=== PATIENT | female | born 1985 | race Caucasian/White ===

== ENCOUNTER 2016-12-21 16:21 | Outpatient (CLI) | payer MEDICAID ==
[~2016-12-21] VITALS: Ht 167.6 cm; Wt 88.4 kg
[~2016-12-21 16:21] MED LIST: PREN1TAB17 PO
[2016-12-21 17:02] VITALS: Ht 167.6 cm; Wt 88.4 kg
[2016-12-21 17:03] VITALS: BP 110/62; PULSE 85; RESP 20
--- NOTE | 2016-12-21 17:48 | TRIAGE ---
OB Triage Datetime Report Generated by CPN: 12/21/2016 17:47 Datetime: 12/21/2016 16:52 Time of Arrival: 12/21/2016 16:10 EGA: 33.6 Arrived By: Ambulatory Arrived From: Home Chief Complaint: DECREASED MOVEMENT Movement: Present Contractions: Denies/Absent Rupture of Membranes: Denies Vaginal Bleeding: None Vaginal Discharge: Denies Recent Sexual Intercouse: Denies Abdominal Trauma: Not Applicable Patient Complaints: Other Time Provider Notified: 12/21/2016 17:10 Provider Notified: CECILE Initial Plan: EFM,CALL DR HUBER Datetime: 12/21/2016 16:49 Maternal Assessment Level of Consciousness: Fully Conscious DTR's/Clonus: DTRs 2+; No Clonus Headache: Denies Blurred Vision: No Respiratory Effort: Unlabored; Regular Rhythm; Equal Expansion Breath Sounds, Left: Clear and Equal Breath Sounds, Right: Clear and Equal Nausea/Vomiting: Denies RUQ Epigastric Pain: Denies Facial Edema: None Temperature Route: Axillary Fall Risk Assessment History of Falling: (0) No Secondary Diagnosis: (0) No Ambulatory Aid: (0) Bedrest/Nurse Assist IV Therapy: (0) No Gait: (0) Normal/Bedrest/Immobile Mental Status: (0) Oriented to Own Ability Fall Score: 0 Fall Risk Score Definition: No Risk: No action required Datetime: 12/21/2016 16:43 Maternal Assessment Level of Consciousness: Fully Conscious DTR's/Clonus: DTRs 2+ Headache: Denies Blurred Vision: No Nausea/Vomiting: Denies RUQ Epigastric Pain: Denies Facial Edema: None Heart Rate FHR Baseline Rate: 145 Monitor Mode: External US FHR Baseline Changes: No Baseline Change Variability: Moderate 6-25 bpm Accelerations: 15X15 Decelerations: None Category: Category I Pain Assessment Pain Scale: 5 Pain Presence: Intermittent Pain Type: Cramping Pain Location: Abdomen Pain Goal: 5 Vaginal Exam Membrane Status: Intact
--- NOTE | 2016-12-21 17:54 | RADRPT ---
PROCEDURE: US OB biophysical profile. Ultrasound cervix CLINICAL INDICATION: decreased movements, labor TECHNIQUE: Multiple sonographic images of the pelvis were obtained. The images were reviewed on a PACS workstation. In addition, transvaginal images of the cervix were obtained. COMPARISON: No prior studies are available for comparison. FINDINGS: The cervix is closed and measures 4.2 cm in length. There is a single viable intrauterine gestation. Cardiac activity is present with 146 beats per min michael. There is a breech presentation. The placenta is posterior. There is no evidence of placental abruption. There is a normal amount of amniotic fluid with an YASIR = 12.8 cm. Biophysical profile: movement 2/2 tone 2/2. breathing 2/2 YASIR 2/2 Total 04/29 RPTAT: AA . IMPRESSION: Normal biophysical profile. Cervix is closed and measures 4.2 cm in length. . .Garret Chow MD, MD Date Time Electronically viewed and signed by .Garret Chow MD, on 12/21/2016 17:53 .S/
[2016-12-21] MEDS ORDERED: LACTATED RINGER'S 1,000 ML IV SCH (18:30)
--- NOTE | 2016-12-21 21:45 | PN ---
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
--- NOTE | 2016-12-21 23:53 | TRIAGE ---
OB Triage Datetime Report Generated by CPN: 12/21/2016 23:53 Datetime: 12/21/2016 22:22 Stage of : OB Triage Frequency: 0 Monitor Mode: External Resting Tone [place]: Relaxed FHR Baseline Rate: 120 Monitor Mode: External US Variability: Moderate 6-25 bpm Accelerations: 15X15 Decelerations: None Category: Category I Datetime: 12/21/2016 22:19 Stage of : OB Triage Datetime: 12/21/2016 21:48 Stage of : OB Triage Datetime: 12/21/2016 21:36 Monitor Mode: External US Datetime: 12/21/2016 21:23 Stage of : OB Triage Datetime: 12/21/2016 21:04 Stage of : OB Triage Datetime: 12/21/2016 21:02 Stage of : OB Triage Datetime: 12/21/2016 20:53 Stage of : OB Triage Datetime: 12/21/2016 20:40 Stage of : OB Triage Frequency: X5 Monitor Mode: External Duration (sec)2399: 40-50 Quality: Mild Resting Tone [place]: Relaxed FHR Baseline Rate: 120 Monitor Mode: External US Variability: Moderate 6-25 bpm Accelerations: 15X15 Decelerations: Variable Category: Category I Datetime: 12/21/2016 19:40 Stage of : OB Triage Frequency: 3-6 Monitor Mode: External Duration (sec)2399: 40-100 Quality: Mild Resting Tone [place]: Relaxed FHR Baseline Rate: 130 Monitor Mode: External US Variability: Moderate 6-25 bpm Accelerations: 15X15 Decelerations: None Category: Category I Datetime: 12/21/2016 18:40 Level of Consciousness: Fully Conscious DTR's/Clonus: DTRs 2+ Headache: Denies Blurred Vision: No Nausea/Vomiting: Denies RUQ Epigastric Pain: Denies Facial Edema: None Frequency: IRREG Monitor Mode: External Duration (sec)2399: 40-50 Quality: Mild Pattern: Normal: <= 5 Contractions in 10 Minutes Resting Tone [place]: Relaxed FHR Baseline Rate: 140 Monitor Mode: External US FHR Baseline Changes: No Baseline Change Variability: Moderate 6-25 bpm Accelerations: 15X15 Decelerations: None Category: Category I Pain Scale: 0 Pain Presence: Intermittent Pain Type: Cramping Pain Location: Abdomen Pain Goal: 4 Membrane Status: Intact Datetime: 12/21/2016 17:59 Bedside Blood Glucose: 71
== END 2016-12-21 22:30 | disposition home or self-care (01) ==
LOC: OBT 16:21 → L-D 16:24 → OBT 22:30
PROVIDERS: ATTEND Obstetrics & Gynecology
DX: O36.8130 Decreased fetal movements, third trimester, not applicable or unspecified (principal); Z3A.33 33 weeks gestation of pregnancy
CPT/HCPCS: 36415; 76817; 76818; 82962; 96360; 96361; J7120; Z7500; G0463

== ENCOUNTER 2016-12-28 18:04 | Outpatient (CLI) | payer MEDICAID ==
[~2016-12-28] VITALS: Ht 167.6 cm; Wt 88.8 kg
[2016-12-28 18:16] VITALS: Ht 167.6 cm; Wt 88.8 kg
[2016-12-28 18:17] VITALS: BP 107/59
[2016-12-28] MEDS ORDERED: INSU100V3 IJ (18:21)
[2016-12-28] MEDS ORDERED: HUM100VI13 SQ (18:22)
--- NOTE | 2016-12-28 20:03 | PN ---
Date/Time of Note Date/Time of Note DATE: 12/28/16 TIME: 19:57 OB Subjective Subjective Subjective 31 yo P1 @ 34.6wks, c/o LOF, possible ROM Good FM, no VB, no ctx OB Objective Objective Objective 107/59, 85, 16, 97.5 Abdomen- gravid, n/t SSE- neg pooling, neg nitrazine FHT- Cat I [place]- no ctx Abdomen: WNL Accelerations: Accelerations Present Decelerations: No Decelerations Contractions on Admission: None OB Assessment/Plan Other Assessment: 31 yo P1 @ 34.6 wks, r/o PROM Other plan: will send ROM+, sono if not ruptured, d/c home GALILEO DIGGS MD Dec 28, 2016 20:03
[2016-12-28 20:05] LABS: ADD UMIC YES; URINE BILIRUBIN (Dip) NEGATIVE (NEGATIVE); URINE BLOOD (Dip) 1+ (NEGATIVE); URINE COLOR LT. YELLOW (YELLOW); URINE GLUCOSE (Dip) NEGATIVE (NEGATIVE); URINE KETONES (Dip) NEGATIVE (NEGATIVE); URINE LEUKOCYTE ESTERASE (Dip) 3+ (NEGATIVE); URINE NITRITE (Dip) NEGATIVE (NEGATIVE); URINE TOTAL PROTEIN (Dip) NEGATIVE (NEGATIVE); URINE UROBILINOGEN (Dip) 0.2 E.U./dL (0.1-1.0)
[2016-12-28 20:27] LABS: BACTERIA,URINE MANY; SQUAMOUS EPITHELIAL CELL,UR FEW; URINE RBCS 0-2 /HPF (0)
--- NOTE | 2016-12-28 20:27 | RADRPT ---
PROCEDURE: OB ultrasound for biophysical profile CLINICAL INDICATION: Biophysical profile. . TECHNIQUE: Multiple sonographic images of the pelvis were obtained. Transabdominal view of the gr avid uterus are available for review. The images were reviewed on a PACS workstation. COMPARISON: 12/26/2016 FINDINGS: Single intrauterine gestation. Presentation: Cephalic. Partially visualized placenta: Fundal breathing movement = 2/2 tone = 2/2 motion = 2/2 YASIR = 2/2 YASIR = 17.5 cm heart rate: 163 beats per minute IMPRESSION: Single intrauterine gestation. Biophysical profile 04/29 RPTAT: AADD .Sean Wilson MD, MD Date Time Electronically viewed and signed by .Sean Wilson MD, on 12/28/2016 20:27 .B/
--- NOTE | 2016-12-29 00:03 | TRIAGE ---
OB Triage Datetime Report Generated by CPN: 12/29/2016 00:03 Datetime: 12/28/2016 21:25 Stage of : OB Triage Frequency: X1 Monitor Mode: External Duration (sec)2399: 60 Quality: Mild Resting Tone [place]: Relaxed FHR Baseline Rate: 130 Monitor Mode: External US Variability: Moderate 6-25 bpm Accelerations: 15X15 Decelerations: None Category: Category I Pain Presence: None/Denies Pain Type: N/A Datetime: 12/28/2016 20:50 Stage of : OB Triage Frequency: 0 Monitor Mode: External Resting Tone [place]: Relaxed FHR Baseline Rate: 135 Monitor Mode: External US Variability: Moderate 6-25 bpm Accelerations: 15X15 Datetime: 12/28/2016 20:08 Stage of : OB Triage Datetime: 12/28/2016 19:56 Stage of : OB Triage Datetime: 12/28/2016 19:36 Monitor Mode: External US Datetime: 12/28/2016 18:42 Stage of : OB Triage Datetime: 12/28/2016 18:24 Stage of : OB Triage Assessment Type: Triage Level of Consciousness: Fully Conscious DTR's/Clonus: DTRs 2+; No Clonus Headache: Denies Blurred Vision: No Respiratory Effort: Unlabored; Regular Rhythm; Equal Expansion Breath Sounds, Left: Clear and Equal Breath Sounds, Right: Clear and Equal Nausea/Vomiting: Denies RUQ Epigastric Pain: Denies Lower Extremities Edema: None Degree: None Upper Extremities Edema: None Degree: None Facial Edema: None Temperature Route: Oral History of Falling: (0) No Secondary Diagnosis: (0) No Ambulatory Aid: (0) Bedrest/Nurse Assist IV Therapy: (0) No Gait: (0) Normal/Bedrest/Immobile Mental Status: (0) Oriented to Own Ability Fall Score: 0 Fall Risk Score Definition: No Risk: No action required Frequency: 0 Monitor Mode: External FHR Baseline Rate: 145 Monitor Mode: External US Variability: Moderate 6-25 bpm Accelerations: 15X15 Category: Category I Pain Scale: 0 Pain Presence: None/Denies Pain Type: N/A Datetime: 12/28/2016 18:00 Time of Arrival: 12/28/2016 18:00 EGA: 34.6 Arrived By: Ambulatory Arrived From: Home Chief Complaint: ? SROM Movement: Present Rupture of Membranes: Unsure Vaginal Bleeding: None Vaginal Discharge: Denies Recent Sexual Intercouse: Denies Abdominal Trauma: Not Applicable Patient Complaints: Other Additional Patient Complaints: PATIENT SAYS SHE FELT WARM GUSH OF WATER AFTER GOING TO THE [facility] Initial Plan: EFMX2, CALL MD , UA, ROM+, BPP
== END 2016-12-28 21:35 | disposition home or self-care (01) ==
LOC: OBT 18:04 → L-D 18:05 → OBT 21:35
PROVIDERS: ATTEND Obstetrics & Gynecology
DX: O41.03X0 Oligohydramnios, third trimester, not applicable or unspecified (principal); Z3A.34 34 weeks gestation of pregnancy
CPT/HCPCS: 76818; 81001; 84112; Z7500; 81003; G0463

== ENCOUNTER 2017-01-21 04:05 | Inpatient (IN) | payer MEDICAID ==
[~2017-01-21] VITALS: Ht 167.6 cm; Wt 90.4 kg
[~2017-01-21 04:05] MED LIST changes: +HUM100VI13 SQ; +INSU100V3 IJ
[2017-01-21 04:22] VITALS: BP 120/79; PULSE 79; RESP 18
--- NOTE | 2017-01-21 04:53 | TRIAGE ---
OB Triage Datetime Report Generated by CPN: 01/21/2017 04:53 Datetime: 01/21/2017 04:39 Stage of : OB Triage Labor Evaluation Frequency: 2-4 Monitor Mode: External Duration (sec)2399: 60 Quality: Mild Pattern: Normal: <= 5 Contractions in 10 Minutes Resting Tone [place]: Relaxed Heart Rate FHR Baseline Rate: 140 Monitor Mode: External US FHR Baseline Changes: No Baseline Change Variability: Moderate 6-25 bpm Accelerations: 10X10 Decelerations: None Category: Category I Pain Assessment Pain Scale: 2 Pain Presence: Intermittent Pain Type: Cramping Pain Location: Abdomen Vaginal Exam Dilatation (cms): 0.5 Effacement (%): 30 Station: -3 Exam By: Elmo Ramey Membrane Status: Ruptured Membranes Rupture Method: Spontaneous Amniotic Fluid Amount: Moderate Amniotic Fluid Odor: None Vaginal Bleeding: None Pool: Positive Nitrazine: Positive Cervix, Consistency: Moderate Cervix, Position: Posterior Datetime: 01/21/2017 04:26 Time of Arrival: 01/21/2017 03:58 EGA: 37.3 Arrived By: Wheelchair Arrived From: Home Chief Complaint: w/ hx c/s x1 and Type 2 DM on insulin to OB triage w/ c/o gush fluid at 0330 Movement: Present Contractions: Occasional Rupture of Membranes: Unsure Vaginal Bleeding: None Vaginal Discharge: Present Recent Sexual Intercouse: Denies Abdominal Trauma: Not Applicable Patient Complaints: Cramping Time Provider Notified: 01/21/2017 04:45 Provider Notified: Dr Lucia Initial Plan: EFM,SVE Datetime: 01/21/2017 04:13 Maternal Assessment Level of Consciousness: Fully Conscious Headache: Denies Blurred Vision: No Respiratory Effort: Unlabored Nausea/Vomiting: Denies RUQ Epigastric Pain: Denies Facial Edema: None Monitor Mode: External Resting Tone [place]: Relaxed Monitor Mode: External US Comments: FHT 140 Pain Assessment Pain Scale: 2 Pain Presence: Intermittent Pain Type: Cramping Pain Location: Abdomen Datetime: 12/28/2016 18:24 Fall Risk Assessment Fall Score: 0 Fall Risk Score Definition: No Risk: No action required Datetime: 12/28/2016 18:00 EGA: 34.0 Datetime: 12/21/2016 16:52 EGA: 33.0 Datetime: 12/21/2016 16:49 Fall Risk Assessment Fall Score: 0 Fall Risk Score Definition: No Risk: No action required
[2017-01-21] MEDS ORDERED: CARBOPROST 250 MCG INJ IM PRN (05:00)
[2017-01-21] MEDS ORDERED: METHYLERGONOVINE 0.2 MG INJ IM PRN (05:00)
[2017-01-21] MEDS ORDERED: OXYTOCIN 30 UNITS/LR 500 ML IV PRN (05:00)
[2017-01-21] MEDS ORDERED: OXYTOCIN 30 UNITS/LR 500 ML IV SCH (05:00)
[2017-01-21] MEDS ORDERED: MISOPROSTOL 200 MCG TAB PR PRN (05:00)
[2017-01-21] MEDS ORDERED: CEFAZOLIN 2 GM/50 ML (PMX) 50 ML IV SCH (05:00)
[2017-01-21] MEDS: LACTATED RINGER'S 1,000 ML IV SCH ×2 (05:15→14:05)
[2017-01-21 05:29] LABS: BARBITURATES NEGATIVE (NEGATIVE); BENZODIAZEPINES NEGATIVE (NEGATIVE); CANNABINOIDS NEGATIVE (NEGATIVE); COCAINE NEGATIVE (NEGATIVE); OPIATES NEGATIVE (NEGATIVE)
[2017-01-21 05:59] LABS: ADD SCAN DIFF NO
[2017-01-21 06:05] LABS: BASOPHILS % 0.4 % (0.0-2.0); EOSINOPHILS # 0.1 10^3/ul (0.0-0.5); EOSINOPHILS % 1.5 % (0.0-7.0); HEMATOCRIT 36.6 % (37.0-47.0); HEMOGLOBIN 11.7 g/dl (12.0-16.0); LYMPHOCYTES # 2.1 10^3/ul (0.8-2.9); LYMPHOCYTES % 22.3 % (15.0-51.0); MEAN CORPUSCULAR HEMOGLOBIN 23.9 pg (29.0-33.0); MEAN CORPUSCULAR VOLUME 74.8 fl (82.0-101.0); MEAN PLATELET VOLUME 11.2 fl (7.4-10.4); MONOCYTE # 0.6 10^3/ul (0.3-0.9); MONOCYTES % 6.1 % (0.0-11.0); NEUTROPHIL # 6.5 10^3/ul (1.6-7.5); NEUTROPHILS % 69.5 % (39.0-77.0); PLATELET COUNT 238 10^3/UL (140-415); RED BLOOD COUNT 4.89 10^6/ul (4.20-5.40); WHITE BLOOD COUNT 9.3 10^3/ul (4.8-10.8)
[2017-01-21 06:20] LABS: ALBUMIN 3.2 g/dl (3.3-4.9); ALBUMIN/GLOBULIN RATIO 0.86; BILIRUBIN,INDIRECT 0.2 mg/dl (0-1.1); BILIRUBIN,TOTAL 0.2 mg/dl (0.2-1.3); CALCIUM 8.7 mg/dl (8.4-10.2); CREATININE 0.67 mg/dl (0.44-1.00); INR 0.87; PROTIME 11.8 Sec (12.2-14.2); PT RATIO 0.9; TOTAL PROTEIN 6.9 g/dl (6.1-8.1)
[2017-01-21 06:25] LABS: PARTIAL THROMBOPLASTIN TIME 27.2 Sec (25.0-35.0)
[2017-01-21] MEDS ORDERED: TERBUTALINE 1 MG/ML INJ SC PRN (08:00)
[2017-01-21] MEDS ORDERED: FENTAnyl 50 MCG/ML VIAL ONE (15:05)
[2017-01-21] MEDS ORDERED: morphine SULFATE/PF (10 MG/10 ML) INJ ONE (15:05)
[2017-01-21] MEDS ORDERED: PHENYLephrine (100 MCG/ML) 5ML SYG ONE (15:14)
[2017-01-21] MEDS ORDERED: ONDANSETRON 4 MG INJ ONE (15:19)
--- NOTE | 2017-01-21 16:20 | HP ---
Date/Time of Note Date/Time of Note DATE: 01/21/17 TIME: 16:17 OB - History Hx of Present Free Text/Dictation admitted at 37+ weeks in labor with previous C/S X 1 Last Menstrual Period: Mar 22, 2016 Estimated Due Date: February 08, 2017 : 2 Para: 1 Care: Good Care Ultrasounds: Normal mid trimester US Obstetrical Complications: Gestational Diabetes (class B Dm ) Medical Complications: Other (DM x 2 years ) Past Family/Social History * Past Medical, Surgical, Family and Obstetric Histories reviewed from chart. Blood Type: O+ Rubella: immune RPR/VDRL: Negative GBS Status: Negative HBsAG: Negative OB Admission Exam Vital Signs Vital Signs Vital Signs Date Time Temp Pulse Resp B/P Pulse Ox O2 Delivery O2 Flow Rate FiO2 01/21/17 04:22 98.2 79 18 120/79 Room Air Physical Exam HEENT: WNL Heart: Rhythm Normal Lungs: Clear, Equal Abdomen: WNL Extremities: Normal Reflexes: Normal Cervical Dilatation: None Effacement: 0% Station: -3 Membranes: Intact Heart Rate: 130's Accelerations: Accelerations Present Decelerations: No Decelerations Varibility: Moderate Contractions on Admission: < 5 Minutes Apart Date/Time Contractions Began: 01/20/2017 Frequency of Contractions: q5 Duration: >60 seconds Intensity: Mild Last 72 hours Lab Results CBC & BMP 01/21/17 05:11 Liver Function Test 01/21/17 05:11 Alanine Aminotransferase (ALT/SGPT) 22 Albumin 3.2 L Alkaline Phosphatase 154 H Aspartate Amino Transf (AST/SGOT) 20 Direct Bilirubin 0.00 Total Protein 6.9 OB Assessment/Plan Reason for admission: section Other Assessment: previous C/S X 1 37 + weeks Other plan: repeat C/S ROMELIA DEL REAL MD January 21, 2017 16:20
--- NOTE | 2017-01-21 16:23 | OPR ---
Operative Report Planned Procedure Procedure date January 21, 2017 Procedure(s) repeat C/S Performed by: ROMELIA DEL REAL MD Assisting provider: SHERICE SALAS M.D. Anesthesiologist: TACOS TODD DO Pre-procedure diagnosis 37 + weeks previous C/S X 1 labor contractions Anesthesia Type: spinal Procedure Description Under satisfactory anaesthesia a Pfannenstiel incision was made two fingerbreadth above and parallel to the symphysis of pubis around the previous scar and previous scar was removed Incision was extended laterally to the border of the Recti muscles on either sides. Incision was carried down with sharp and blunt dissection until fascia was reached. Anterior Recti muscle fascia was incised in mid portion and incision extended laterally to the border of skin incision. Fascia was mobilized from muscle superiorly and Recti muscles were from midline using sharp and blunt dissection. Peritoneum was visualized; Avoiding bowel and bladder it was incised . Incision was extended superiorly and inferiorly. Bladder blade was placed. Posterior peritoneum covering the lower segment of the uterus and lower segment of the uterus were incised.Low transverse uteine incision was made on lower segment of the uterus. Incision extended laterally to the border of Round Lig. on either sides and baby was delivered from OT. position . Amniotic fluid appeared clear. Cord blood was obtained and cord had 3 vessels . Placenta was delivered spontaneously and appeared intact and complete. Intrauterine cavity was rubbed with a laparotomy sponge. Uterine incision was closed in 2 layers using running stitches of No1 Monocryl. Hemostasis appeared secure. Ovaries and Fallopian tubes were within normal limits. Announcing needle, lap sponge and instrument count to be correct abdomen was closed in layers as follows: Peritoneum and Recti muscles with running stitches of 20 Vicryl. Fascia with running stitch of No 1 PDS. Subcutaneous tissue with running stitches of 20 Chromic and skin was closed using debi. Patient tolerated the procedure well and was transferred to [facility] in good condition. Post-Procedure Post-procedure diagnosis S/P C/S Findings: Live Baby Specimen removed: No Complications: None Pt Condition post procedure: stable Disposition: PACU Physician Certification I, the undersigned physician, hereby certify that I have discussed the procedure described in this consent form with this patient (or the patient's legal billing representative), including: * The risk and benefits of the procedure; * Any adverse reactions that may reasonably be expected to occur; * Any alternative efficacious methods of treatment which may be medically viable ; * The potential problems that may occur during recuperation; * Potential for blood transfusion and associated risks/benefits; and * Any research or economic interest I may have regarding this treatment. I further certify that the patient/legally responsible person was encouraged to ask question and that all questions were answered. ROMELIA DEL REAL MD January 21, 2017 16:23
[2017-01-21] MEDS ORDERED: NALOXONE (0.4 MG/ML) INJ IV PRN (16:30)
[2017-01-21] MEDS ORDERED: DIPHENHYDRAMINE 50 MG INJ IV PRN (16:30)
[2017-01-21] MEDS ORDERED: HYDROmorphONE 1 MG/ML SYG IV PRN ×2 (16:30)
[2017-01-21] MEDS ORDERED: ZOLPIDEM 5 MG TAB PO PRN (16:30)
[2017-01-21] MEDS ORDERED: ONDANSETRON 4 MG INJ IV PRN (16:30)
[2017-01-21] MEDS: KETOROLAC 30 MG INJ IV PRN (17:54)
[2017-01-21 21:00] VITALS: BP 99/54; PULSE 80; RESP 20
[2017-01-21 21:30] VITALS: BP 101/59; PULSE 55; RESP 20
[2017-01-21 22:00] VITALS: BP 99/56; PULSE 53; RESP 20
[2017-01-21 23:00] VITALS: BP 96/54; PULSE 58; RESP 20
[2017-01-21] MEDS ORDERED: GLUCOSE GEL 15 GRAM TUBE PO PRN ×2 (23:45)
[2017-01-21] MEDS ORDERED: GLUCOSE GEL 15 GRAM TUBE BUCCAL PRN (23:45)
[2017-01-21] MEDS ORDERED: GLUCAGON 1 MG INJ IM PRN (23:45)
[2017-01-21] MEDS ORDERED: DEXTROSE 50% 50 ML SYRINGE IV PRN ×2 (23:45)
[2017-01-22] VITALS: BP 97/51; PULSE 55; RESP 20
[2017-01-22] MEDS ORDERED: METHYLERGONOVINE 0.2 MG INJ IM PRN
[2017-01-22] MEDS ORDERED: OXYTOCIN 30 UNITS/LR 500 ML IV PRN
[2017-01-22] MEDS ORDERED: LANOLIN 7 GM TUBE TOP PRN
[2017-01-22] MEDS ORDERED: MISOPROSTOL 200 MCG TAB PR PRN
[2017-01-22] MEDS ORDERED: NA PHOSPHATE/BIPHOS 133 ML ENEMA PR PRN
[2017-01-22] MEDS ORDERED: CARBOPROST 250 MCG INJ IM PRN
[2017-01-22] MEDS: LACTATED RINGER'S 1,000 ML IV SCH ×3 (00:04→15:36)
[2017-01-22] MEDS: CLINDAMYCIN 300 MG CAP PO SCH ×4 (00:12→18:28)
[2017-01-22] MEDS: CEFAZOLIN 2 GM/50 ML (PMX) 50 ML IV SCH ×3 (00:50→15:33)
[2017-01-22 04:00] VITALS: BP 113/55; PULSE 57; RESP 20
[2017-01-22] MEDS: KETOROLAC 30 MG INJ IV PRN ×2 (04:23→11:38)
[2017-01-22 07:45] VITALS: BP 88/49; PULSE 64; RESP 17
[2017-01-22] MEDS: ACCU-CHEK XX SCH ×4 (07:49→20:05)
[2017-01-22] MEDS: glyBURIDE 2.5 MG TAB PO SCH ×2 (08:13→18:29)
[2017-01-22 08:32] LABS: ADD SCAN DIFF NO
[2017-01-22 08:45] LABS: BASOPHIL # 0.1 10^3/ul (0.0-0.1); BASOPHILS % 0.4 % (0.0-2.0); EOSINOPHILS # 0.1 10^3/ul (0.0-0.5); EOSINOPHILS % 0.4 % (0.0-7.0); HEMATOCRIT 30.8 % (37.0-47.0); HEMOGLOBIN 9.6 g/dl (12.0-16.0); LYMPHOCYTES % 17.5 % (15.0-51.0); MEAN CORPUSCULAR HEMOGLOBIN 23.5 pg (29.0-33.0); MEAN CORPUSCULAR HGB CONC 31.2 g/dl (32.0-37.0); MEAN CORPUSCULAR VOLUME 75.3 fl (82.0-101.0); MEAN PLATELET VOLUME 11.1 fl (7.4-10.4); MONOCYTE # 0.6 10^3/ul (0.3-0.9); MONOCYTES % 5.3 % (0.0-11.0); NEUTROPHIL # 8.8 10^3/ul (1.6-7.5); PLATELET COUNT 192 10^3/UL (140-415); RED BLOOD COUNT 4.09 10^6/ul (4.20-5.40); RED CELL DISTRIBUTION WIDTH 16.3 % (11.5-14.5); WHITE BLOOD COUNT 11.6 10^3/ul (4.8-10.8)
[2017-01-22] MEDS ORDERED: metFORMIN (XR) 500 MG TAB PO SCH (09:00)
[2017-01-22] MEDS: metFORMIN (XR) 500 MG TAB PO SCH ×2 (09:02→21:36)
[2017-01-22] MEDS: SENNA/DOCUSATE NA (8.6MG/50MG) TAB PO SCH ×2 (09:15→21:34)
[2017-01-22] MEDS ORDERED: BISACODYL 10 MG SUPP PR ONE (09:30)
[2017-01-22 12:00] VITALS: BP 118/67; PULSE 70; RESP 17
--- NOTE | 2017-01-22 13:32 | PN ---
Date/Time of Note Date/Time of Note DATE: 01/22/17 TIME: 13:31 Assessment/Plan VTE Prophylaxis VTE Prophylaxis Intervention: ambulation Lines/Catheters IV Catheter Type (from Nrsg): Peripheral IV Assessment/Plan Assessment/Plan S/P C/S POD # 1 will advance diet and ambulate Subjective 24 Hr Interval Summary No BM Passing flatus Constitutional: BM, ambulates, flatus, improved, no complaints, urine output Pain Control: well controlled Exam/Review of Systems Vital Signs Vitals Vital Signs Date Time Temp Pulse Resp B/P Pulse Ox O2 Delivery O2 Flow Rate FiO2 01/22/17 13:18 98 21 01/22/17 12:00 98.2 70 17 118/67 Room Air Intake and Output 01/21/17 01/21/17 01/22/17 15:00 23:00 07:00 Intake Total 1000 ml 1500 ml 1000 ml Output Total 1025 ml 800 ml Balance 1000 ml 475 ml 200 ml Exam Free Text/Dictation Abdomen: soft BS + Incision: covered sugars are controlled with metformin and glyburide Constitutional: alert, oriented, well developed Psych: nl mood/affect, no complaints Head: atraumatic, normocephalic Eyes: EOMI, nl conjunctiva, nl lids, nl sclera ENMT: mucosa pink and moist, nl external ears & nose, nl lips & teeth, nl nasal mucosa & septum Neck: non-tender, supple Respiratory: clear to auscultation, normal air movement Cardiovascular: nl pulses, regular rate and rhythm Gastrointestinal: nl liver, spleen, non-tender, soft Musculoskeletal: nl extremities to inspection, nl gait and stance Extremities: normal pulses 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
[2017-01-22 16:00] VITALS: BP 104/61; PULSE 69; RESP 17
[2017-01-22] MEDS: OXYCODONE/ACETAMINOPHEN (5/325) TAB PO PRN (16:17)
[2017-01-22] MEDS ORDERED: ACETAMINOPHEN/CODEINE #3 TAB PO PRN (16:30)
[2017-01-22 20:00] VITALS: BP 115/75; PULSE 98; RESP 17
[2017-01-22] MEDS: IBUPROFEN 800 MG TAB PO SCH (21:36)
[2017-01-23] MEDS: CLINDAMYCIN 300 MG CAP PO SCH ×4 (00:16→17:54)
[2017-01-23] MEDS: OXYCODONE/ACETAMINOPHEN (5/325) TAB PO PRN ×2 (02:03→12:18)
[2017-01-23 04:00] VITALS: BP 89/55; PULSE 59; RESP 18
[2017-01-23] MEDS: IBUPROFEN 800 MG TAB PO SCH ×3 (05:10→21:18)
[2017-01-23 08:30] VITALS: BP 88/60; RESP 20
[2017-01-23] MEDS: SENNA/DOCUSATE NA (8.6MG/50MG) TAB PO SCH ×2 (08:44→21:18)
[2017-01-23] MEDS: metFORMIN (XR) 500 MG TAB PO SCH ×2 (08:44→21:18)
[2017-01-23] MEDS: glyBURIDE 2.5 MG TAB PO SCH ×2 (08:44→17:54)
[2017-01-23] MEDS: ACCU-CHEK XX SCH ×3 (08:46→15:00)
[2017-01-23 16:00] VITALS: BP 98/49; PULSE 63; RESP 16
--- NOTE | 2017-01-23 17:41 | DS ---
Date/Time of Note Date/Time of Note home next day DATE: 01/23/17 TIME: 17:39 Obstetrical Discharge Record Final Diagnosis Final Diagnosis: Term delivered Other Final Diagnosis S/P C/S Section Section: Repeat Complications Other (Diabetes) Condition on Discharge Physical Assessment Last Vitals: see nurses notes Voiding: Yes Bowel Movement: Yes Breast: Soft, non-tender, Filling Fundus: Firm Abdomen and Incision: soft BS + Incision: healing well Episiotomy: NA Calf Tenderness: No Patient Condition: Good ROMELIA DEL REAL MD January 23, 2017 17:41
--- NOTE | 2017-01-23 17:43 | DS ---
Date/Time of Note Date/Time of Note DATE: 01/23/17 TIME: 17:41 Discharge Summary Admission/Discharge Info Admit Date/Time January 21, 2017 at 04:40 Discharge Date/Time 01/24/2017 Final Diagnosis S/P repeat C/S Patient Condition: Good Procedures repeat C/S Hx of Present Illness 31 y/o female had repeat C/S ion labor at 37 + weeks Hospital Course uncomplicated Home Meds Reported Medications Insulin NPH Hum/Reg Insulin Hm (Relion Novolin 70-30 Vial) 100 Unit/1 Ml Vial, 100 UNIT SQ TID, VIAL 12/28/16 Insulin Regular, Human (Humulin R) 100 Unit/1 Ml Vial, 14 UNIT IJ BID, VIAL 12/28/16 Vit-Iron Fumarate-FA ( Tablet) 1 Each Tablet, 1 EACH PO DAILY 03/08/13 Follow-up Plan 3 days in clinic for staple removal Pending Labs Laboratory Tests Test 01/22/17 21:33 01/23/17 08:43 01/23/17 11:38 01/23/17 15:25 Bedside Glucose 98mg/dL (70-220) 86mg/dL (70-220) 97mg/dL (70-220) 70mg/dL (70-220) ROMELIA DEL REAL MD January 23, 2017 17:43
--- NOTE | 2017-01-23 17:45 | PD.PPDC ---
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
[2017-01-23] MEDS ORDERED: Oxycodone/Acetamin (5/325) PO (17:47)
[2017-01-23] MEDS ORDERED: GLUC1VIA3 IM (17:47)
[2017-01-23] MEDS ORDERED: IBUP800T25 PO (17:47)
[2017-01-23] MEDS ORDERED: GLYB2.5T2 PO (17:47)
[2017-01-24] MEDS: OXYCODONE/ACETAMINOPHEN (5/325) TAB PO PRN ×2 (00:01→16:58)
[2017-01-24] MEDS: CLINDAMYCIN 300 MG CAP PO SCH ×4 (00:05→18:53)
[2017-01-24 04:06] VITALS: BP 120/62; PULSE 74; RESP 20
[2017-01-24] MEDS: IBUPROFEN 800 MG TAB PO SCH ×3 (05:40→21:14)
[2017-01-24] MEDS: ACCU-CHEK XX SCH ×4 (07:30→20:25)
[2017-01-24] MEDS: glyBURIDE 2.5 MG TAB PO SCH (08:05)
[2017-01-24 09:00] VITALS: BP 106/61; PULSE 56; RESP 16
[2017-01-24] MEDS ORDERED: MEASLES,MUMPS,RUBELLA VACCINE INJ SC* ONE (09:00)
[2017-01-24] MEDS ORDERED: DIPHTH/TET/ACEL PERTUSS (ADULT) 0.5 ML VIAL IM* ONE (09:00)
[2017-01-24] MEDS: SENNA/DOCUSATE NA (8.6MG/50MG) TAB PO SCH ×2 (10:59→21:14)
[2017-01-24] MEDS: metFORMIN (XR) 500 MG TAB PO SCH ×2 (11:00→21:15)
[2017-01-24 17:15] VITALS: BP 111/52; PULSE 62; RESP 16
[2017-01-24 20:00] VITALS: BP 102/62; PULSE 52
--- NOTE | 2017-01-24 20:01 | PN ---
Date/Time of Note Date/Time of Note DATE: 01/24/17 TIME: 19:58 Assessment/Plan VTE Prophylaxis VTE Prophylaxis Intervention: ambulation Lines/Catheters IV Catheter Type (from Nrsg): Peripheral IV Assessment/Plan Chief Complaint/Hosp Course uncomplicated Problems: Assessment/Plan S/P C/S POD # 3 will D/C glyburide continue to observe (long half life of Glyburide) Subjective 24 Hr Interval Summary had BM had earlier hypoglycemic episode currently stable and no complaints Constitutional: BM, ambulates, flatus, improved, no complaints, urine output Pain Control: well controlled Exam/Review of Systems Vital Signs Vitals Vital Signs Date Time Temp Pulse Resp B/P Pulse Ox O2 Delivery O2 Flow Rate FiO2 01/24/17 17:15 98.2 62 16 111/52 Room Air 01/22/17 13:18 98 21 Exam Free Text/Dictation VSS not diaphoretic Incision: healing well Constitutional: alert, oriented, well developed Psych: nl mood/affect, no complaints Head: atraumatic, normocephalic Eyes: EOMI, nl conjunctiva, nl lids, nl sclera ENMT: mucosa pink and moist, nl external ears & nose, nl lips & teeth, nl nasal mucosa & septum Neck: non-tender, supple Respiratory: clear to auscultation, normal air movement Cardiovascular: nl pulses, regular rate and rhythm Gastrointestinal: nl liver, spleen, non-tender, soft Musculoskeletal: nl extremities to inspection, nl gait and stance Extremities: normal pulses 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
[2017-01-25] MEDS: CLINDAMYCIN 300 MG CAP PO SCH ×4 (00:29→18:00)
[2017-01-25] MEDS: OXYCODONE/ACETAMINOPHEN (5/325) TAB PO PRN ×3 (00:30→18:01)
[2017-01-25 04:00] VITALS: BP 98/64; PULSE 52; RESP 18
[2017-01-25] MEDS: IBUPROFEN 800 MG TAB PO SCH ×2 (06:08→14:33)
[2017-01-25 07:40] VITALS: BP 101/70; PULSE 63; RESP 20
[2017-01-25] MEDS: metFORMIN (XR) 500 MG TAB PO SCH (08:40)
[2017-01-25] MEDS: SENNA/DOCUSATE NA (8.6MG/50MG) TAB PO SCH (08:40)
[2017-01-25 16:30] VITALS: BP 108/54; PULSE 56; RESP 18
[2017-01-25] MEDS ORDERED: METF500T3 PO (19:04)
[2017-01-25 19:35] VITALS: BP 102/57; PULSE 60; RESP 18
== END 2017-01-25 21:10 | disposition home or self-care (01) | DRG 766 ==
LOC: OBT 04:05 → L-D 04:05 → OBT 04:40 → L-D 05:42 → PP1 20:59
PROVIDERS: ADMIT Obstetrics & Gynecology; ATTEND Obstetrics & Gynecology
PROC: 10D00Z1 Extraction of Products of Conception, Low, Open Approach (ICD-10-PCS; principal; 2017-01-21 15:00)
DX: O34.211 Maternal care for low transverse scar from previous cesarean delivery (principal); O24.429 Gestational diabetes mellitus in childbirth, unspecified control; Z3A.37 37 weeks gestation of pregnancy; Z37.0 Single live birth
CPT/HCPCS: 36415; 80053; 80307; 82962; 85025; 85610; 85730; 86592; 86850; 86900; 86901; 87340; 90715; 94760; 96360; 99464; G0463; J0690; J1170; J1200; J1885; J2274; J2370; J2405; J2590; J3010; J3105; J7120